=== PATIENT | male | born 1980 | race Caucasian/White ===

== ENCOUNTER 2024-01-21 09:50 | Inpatient (IN) | payer OTHER, MEDICAID ==
[2024-01-21] VITALS (21 sets, daily range): BP systolic 132–184; BP diastolic 75–109
[~2024-01-21] VITALS: Ht 167.6 cm; Wt 89.4 kg
[~2024-01-21 09:50] MED LIST: COREG25 MG PO; NIFEDIPINE ER60 M1 PO; ONDANSETRON HCL4 MG PO; ZESTRIL40 MG PO
--- OUTSIDE RECORDS SUMMARY | 2024-01-21 09:51 | XMS ---
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 Socrates has no Care Guidelines for this patient. [facility] VISIT COUNT (12 MO[address] [facility] TOTAL 2 NOTE: Visits indicate total known visits. ED/C VISIT TRACKING (12 MO.) 01/21/2024 09:[address] 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
[2024-01-21] MEDS ORDERED: SODIUM CHLORIDE 0.9% 1,000 ML IV PRN (10:15)
[2024-01-21] MEDS ORDERED: CEFTRIAXONE/SODIUM CHLORIDE 2 GM/100 ML PIGGYBACK IV ONE (10:15)
[2024-01-21] MEDS ORDERED: ondansetron HCL 4 MG/2 ML VIAL IV ONE (10:15)
[2024-01-21] MEDS ORDERED: PANTOPRAZOLE SODIUM 40 MG/10 ML VIAL IV ONE (10:15)
[2024-01-21] MEDS ORDERED: HYDROmorphone HCL 1 MG/ML SYR IV ONE (10:15)
[2024-01-21 10:23] LABS: BASOPHILS 0.3 % (0-2); HEMATOCRIT 43.5 % (35.0-50.0); HEMOGLOBIN 14.9 g/dL (12.0-18.0); LYMPHOCYTES 3.4 % (24-44); MCH 30.4 (27-36); MCHC 34.2 g/dl (30-36); MCV 88.9 fl (81-99); MONOCYTES 4.6 % (0-12); NEUTROPHILS 91.7 % (39-80); PLATELET COUNT 226 K/uL (140-440); RBC 4.89 M/ul (4.3-5.7); RDW 15.6 (10.5-15.0)
[2024-01-21 10:37] LABS: INR 1.03 (0.80-1.30); PROTIME 13.1 Sec (11.2-14.2)
[2024-01-21 10:39] LABS: PARTIAL THROMBOPLASTIN TIME 23.4 Sec (22.9-41.3)
[2024-01-21 10:50] LABS: ALBUMIN/GLOBULIN RATIO 1.05 (1.1-2.4); ALCOHOL, MEDICAL 6 ng/dL (<3); ALKALINE PHOSPHATASE 113 U/L (46-116); ALT (SGPT) 24 U/L (14-59); AST (SGOT) 19 U/L (15-37); BILIRUBIN, TOTAL 1.6 ng/dL (0.2-1.0); BUN/CREATININE RATIO 10.23 (6.0-28.6); CALCIUM 11.1 mg/dL (8.5-10.1); CARBON DIOXIDE 30 mmol/L (21-32); CHLORIDE 93 mmol/L (98-107); CREATININE, SERUM 2.15 mg/dL (0.70-1.30); GLOMERULAR FILTRATION RATE,EST 38 mL/min (>60); PROTEIN, TOTAL 7.8 g/dL (6.4-8.2); UREA NITROGEN 22 mg/dL (7-18)
[2024-01-21 10:55] LABS: LACTIC ACID, BLOOD 5.9 mmol/L (0.4-2.0)
[2024-01-21] MEDS ORDERED: MAGNESIUM SULFATE 2 GM/50 ML BAG IV ONE ×2 (11:15→21:45)
[2024-01-21 11:19] LABS: MAGNESIUM 0.9 mg/dL (1.8-2.4)
[2024-01-21 11:30] LABS: BILIRUBIN, URINE POSITIVE (negative); BLOOD/HGB, URINE TRACE-I (Negative); KETONE, URINE SMALL (Negative); LEUK ESTERASE, URINE NEGATIVE (negative); NITRITE, URINE NEGATIVE (negative)
[2024-01-21 11:36] LABS: EPITHELIAL CELLS, URINE TRANSITIONAL 1+ /lpf (0-1+)
[2024-01-21 11:37] LABS: BACTERIA, URINE 1+ /hpf (negative); CRYSTALS, URINE NONE SEEN (0-1+)
[2024-01-21 11:38] LABS: COLLECTION TYPE, URINE CLEAN CATCH; REFLEX CULTURE, URINE No (No)
[2024-01-21 11:44] LABS: AMPHETAMINES, URINE NEGATIVE (NEGATIVE); BARBITURATES, URINE NEGATIVE (NEGATIVE); BENZODIAZEPINE, URINE NEGATIVE (NEGATIVE); BUPRENORPHINE, URINE NEGATIVE (NEGATIVE); CANNABINOID, URINE NEGATIVE (NEGATIVE); COCAINE, URINE NEGATIVE (NEGATIVE); ECSTASY, URINE NEGATIVE (NEGATIVE); FENTANYL, URINE NEGATIVE (NEGATIVE); METHADONE, URINE NEGATIVE (NEGATIVE); OPIATES, URINE NEGATIVE (NEGATIVE); OXYCODONE, URINE NEGATIVE (NEGATIVE); PHENCYCLIDINE, URINE NEGATIVE (NEGATIVE)
[2024-01-21 11:47] LABS: INFLUENZA B NAA NEGATIVE (NEGATIVE); RESPIRATORY SYNCYTIAL VIR NAA NEGATIVE (NEGATIVE)
[2024-01-21 12:54] LABS: LACTIC ACID, BLOOD 1.5 mmol/L (0.4-2.0)
[2024-01-21] MEDS ORDERED: METOPROLOL TARTRATE 5 MG/5 ML VIAL IV ONE (13:00)
[2024-01-21] MEDS ORDERED: hydrALAZINE HCL 20 MG/ML VIAL IV ONE (13:15)
[2024-01-21] MEDS ORDERED: niCARdipine HCL 50 MG in DEXTROSE 5% 250 ML IV SCH (13:45)
[2024-01-21] MEDS ORDERED: LORazepam 2 MG/ML VIAL IV/IM PRN (14:30)
[2024-01-21] MEDS ORDERED: LORazepam 1 MG TAB PO PRN (14:30)
[2024-01-21] MEDS ORDERED: LACTATED RINGER'S 1,000 ML IV SCH (14:30)
[2024-01-21] MEDS ORDERED: ondansetron HCL 4 MG/2 ML VIAL IV PRN (14:30)
[2024-01-21 14:40] LABS: CHOLESTEROL/HDL RATIO 3.4
[2024-01-21] MEDS ORDERED: HYDROmorphone HCL 1 MG/ML SYR IV PRN (15:30)
[2024-01-21] MEDS ORDERED: NICOTINE 21 MG/24 HR 1 EA TDSY TD SCH (15:30)
[2024-01-21] MEDS ORDERED: POTASSIUM CHLORIDE 40 MEQ,LIDOCAINE HCL 1% 40 MG in DEXTROSE 5% 250 ML IV ONE (15:30)
--- NOTE | 2024-01-21 15:30 | NUR ---
PATIENT ARRIVES TO CCU FROM ER TO 127 AT 1510 FOR PANCREATITIS. PT ABLE TO MOVE SELF OVER TO BED. PT HAS TWO BAGS OF PERSONAL BELONGINGS WITH HIM. 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 PER PATIENT, HE IS HOMELESS AND TRAVELING TO THE [place]. PT REPORTS ABD PAIN STARTED A FEW DAYS AGO, AN HE HAS HAD A HARD TIME KEEEPING ANYTHING DOWN WITH VOMITING. NICARDIPINE GTT INFUSING AT 7.5 MG/HR UPON ARRIVAL. HR IN THE 120s. PT REPORTS BEING A PREVIOUS HEAVY ALCOHOL CONSUMER, BUT HASN'T BEEN DRINKING HEAVILY FOR A WHILE, BUT DID HAVE 3 HIGH GRAVITY BEERS LAST NIGHT. IVF STARTED AT 125 ML/HR. PT ORIENTED TO ROOM AND CALL LIGHT. PRN MEDICATION TO BE AVAILABLE FOR PAIN CONTROL. PT IS DISTENDED IN HIS ABDOMEN AND TENDER. PT TO REMAINS NPO BUT CAN HAVE ICE CHIPS. URINAL PROVIDED.
--- NOTE | 2024-01-21 16:45 | NUR ---
PRN MEDICATION GIVEN FOR 5/10 ABDOMINAL PAIN. PT REMAINS NPO BUT ICE CHIPS OKAY. IVF GOING AT 125 ML/HR. NICARDIPINE IS NOW OFF. MAP GOAL IS <110. HR REMAINS IN THE 120s.
--- NOTE | 2024-01-21 19:36 | NUR ---
SHIFT CHANGE REPORT RECEIVED FROM FILI LUDWIG. PATIENT RESTING IN BED WITH EYES OPEN. AOX3. PATIENT DENIES NAUSEA AND PAIN AT THIS TIME. FRESH WATER PROVIDED. EDUCATION PROVIDED ON GOING SLOW WITH SIPS OF WATER. CALL LIGHT IN REACH.
--- NOTE | 2024-01-21 20:36 | NUR ---
DR. DE JESUS ROUNDING ON PATIENT. BP CHARTED WITH MAP OF 94. NICARDIPINE GTT TITRATED DOWN PER FLOWSHEET. PLAN OF CARE REVIEWED WITH PATIENT, DENIES QUESTIONS. DR. DE JESUS OFFERED TO SLOWLY ADVANCE DIET PATIENT IMPROVES. PATIENT DENIES APPETITE THIS TIME AND WISHES TO STAY WITH ICE/WATER.
[2024-01-21 21:16] LABS: ANION GAP 14.2 (7-21); BUN/CREATININE RATIO 11.11 (6.0-28.6); CREATININE, SERUM 1.8 mg/dL (0.70-1.30); MAGNESIUM 1.7 mg/dL (1.8-2.4); POTASSIUM 3.2 mmol/L (3.5-5.1)
--- NOTE | 2024-01-21 21:16 | NUR ---
PATIENT AGREEABLE TO SECOND IV. 20G PIV STARTED ON FIRST ATTEMPT IN LEFT FA. BLOOD DRAWN AND SENT TO LAB. PATIENT C/O 5 SHARP ABDOMINAL PAIN. MEDICATED WITH DILAUDID PER EMAR. PATIENT REPORTS "I AM REALLY TIRED TONIGHT, I WAS UP ALL NIGHT VOMITING LAST NIGHT." POC REVIEWED AGAIN WITH PATIENT. EXPLAINED NURSING CARES THROUGHOUT THE NIGHT BUT THAT THIS ACCREDITATION MANAGER WOULD PROMOTE MUCH REST POSSIBLE. CALL LIGHT IN REACH.
[2024-01-21] MEDS ORDERED: POTASSIUM CHLORIDE 10 MEQ/100 ML BAG IV ONE (21:45)
[2024-01-21] MEDS ORDERED: POTASSIUM CHLORIDE 10 MEQ/100 ML BAG IV SCH (21:45)
--- NOTE | 2024-01-21 22:48 | NUR ---
CLARIFIED POTASSIUM REPLACEMENT ORDER WITH DR. DE JESUS. VERBAL ORDER READ BACK TO CONFIRM PATIENT IS TO RECEIVE A TOTAL OF 40MEQ. REVIEWED UO WITH PROVIDER, ORDER RECEIVED TO INCREASE IVF TO 200ML/HR AND CONTINUE TO TITRATE NICARDIPINE FOR BP PARAMETERS. PATIENT WAKES SO SOUND IN ROOM, REVIEWED LAB RESULTS AND IV ELECTROLYTE REPLACEMENT. PATIENT DENIES QUESTIONS. REPORTS HIS PAIN IS NOW 0/10. ENCOURAGED PATIENT TO ATTEMPT TO VOID. PT DENIES NEEDS AT THIS TIME. CALL LIGHT IN REACH.
[2024-01-22] VITALS (18 sets, daily range): BP systolic 118–159; BP diastolic 65–100
--- NOTE | 2024-01-22 00:15 | NUR ---
PATIENT WAKES EASILY FOR ASSESSMENT. CONTINUES TO DENY NEED TO VOID. BLADDER SCAN COMPLETED FOR 277ML. ENCOURAGED PATIENT TO VOID. ASSISTED OOB AND PATIENT VOIDED 250ML GRICELDA COLORED URINE. DENIES NAUSEA OR PAIN AT THIS TIME. MAGNESIUM INFUSION COMPLETE, REMAINING IVF INFUSING WITHOUT DIFFICULTY. CALL LIGHT IN REACH. EDUCATION PROVIDED ON S/S OF FLUID OVERLOAD. PATIENT VERBALIZED UNDERSTANDING AND AGREES TO CALL THIS RN IF ANY CONCERNS.
[2024-01-22] MEDS ORDERED: POTASSIUM CHLORIDE 100 ML IV ONE (02:25)
--- NOTE | 2024-01-22 02:44 | NUR ---
PATIENT WAKES EASILY TO INHALATION THERAPIST IN ROOM. PATIENT COMPLAINS OF 6/10 ABDOMINAL PAIN AND NAUSEA. MEDICATED FOR BOTH. PATIENT HAS WARM SENSATION AND INCREASED NAUSEA WITH DILAUDID IVP EVEN WITH SLOW ADMINISTRATION, HOWEVER, SENSATION SUBSIDES AND NO FURTHER COMPLAINTS. LAST INFUSION OF 10MEQ OF POTASSIUM HUNG AND INFUSING, ALL IVF INFUSING WITHOUT DIFFICULTY. FRESH WATER PROVIDED. DENIES OTHER NEEDS OR CONCERNS. CALL LIGHT IN REACH.
--- NOTE | 2024-01-22 04:05 | NUR ---
PATIENT RESTING BUT WAKES TO SOUND OF IV PUMP ALARMING. ASSESSMENT CHARTED. PATIENT ENCOURGES TO GET UP TO VOID. VOIDED 200ML GRICELDA COLORED URINE. PATIENT REPORTS THAT HE HAS NO PAIN OR NAUSEA AT THIS TIME. DENIES NEEDS OR CONCERNS. CALL LIGHT IN REACH.
[2024-01-22] MEDS ORDERED: DEXTROSE 5% 250 ML IV ONE (04:52)
[2024-01-22 05:34] LABS: BASOPHILS 0.4 % (0-2); EOSINOPHILS 0.4 % (0-6); HEMATOCRIT 34.8 % (35.0-50.0); HEMOGLOBIN 12.2 g/dL (12.0-18.0); LYMPHOCYTES 4.6 % (24-44); MCH 31.2 (27-36); MCHC 35.1 g/dl (30-36); MCV 88.7 fl (81-99); MONOCYTES 1.7 % (0-12); NEUTROPHILS 92.9 % (39-80); PLATELET COUNT 116 K/uL (140-440); RBC 3.93 M/ul (4.3-5.7); RDW 15.4 (10.5-15.0)
[2024-01-22 05:49] LABS: ALBUMIN 2.8 g/dL (3.4-5.0); ALBUMIN/GLOBULIN RATIO 0.97 (1.1-2.4); BILIRUBIN, TOTAL 1.2 ng/dL (0.2-1.0); BUN/CREATININE RATIO 10.45 (6.0-28.6); CALCIUM 8.6 mg/dL (8.5-10.1); CREATININE, SERUM 1.53 mg/dL (0.70-1.30); PHOSPHORUS, INORGANIC 1.6 mg/dL (2.5-4.9); PROTEIN, TOTAL 5.7 g/dL (6.4-8.2)
[2024-01-22] MEDS ORDERED: POTASSIUM PHOSPHATE 30 MMOL in DEXTROSE 5% 500 ML IV ONE (06:00)
--- NOTE | 2024-01-22 06:03 | NUR ---
LAB RESULTS, FLUIDS AND UO REVIEWED WITH DR. DE JESUS. INGA FOR POTASSIUM PHOSPHATE IV.
--- NOTE | 2024-01-22 08:07 | EKG ---
[facility] [address] [place], [place] [address] \T\ T wave abnormality, consider inferolateral ischemia Abnormal ECG No previous ECGs available Confirmed by Kashmir De Jesus MD () on 01/22/2024 8:07:39 AM Electronically Signed By: KASHMIR DE JESUS MD 01/22/2407 PATIENT NAME: STEVEN PARRA Electrocardiogram DATE OF : 76 PHYSICIAN: KASHMIR DE JESUS MD REPORT #: [id number] REPORT IS CONFIDENTIAL AND NOT TO BE RELEASED WITHOUT AUTHORIZATION
--- NOTE | 2024-01-22 08:21 | NUR ---
PATIENT RESTING IN BED UPON INITIAL ASSESSMENT. PT AWAKENS EASILY. PT STATES HE IS FEELING MUCH BETTER THAN WHEN HE FIRST CAME TO THE HOSPITAL. HR IN THE 110s. IVF CONTINUE AT 200 ML/HR. PT RATING PAIN 0/10 CURRENTLY. PT REMAINS OFF NICARDIPINE GTT. LAST BP 150/92 (110). PT HAS BEEN TOLERATING WATER WITHOUT ANY NAUSEA OR WORSENING ABD PAIN. PLAN OF CARE DISCUSSED.
[2024-01-22] MEDS ORDERED: PANTOPRAZOLE SODIUM 40 MG/10 ML VIAL IV SCH (09:00)
--- NOTE | 2024-01-22 09:10 | NUR ---
DR. DE JESUS IN TO SEE PATIENT AT THIS TIME AND DISCUSS PLAN OF CARE. PT REMAINS TACHY IN THE 110s. IVF CONTINUE AT 200 ML/HR AT THIS TIME.
[2024-01-22] MEDS ORDERED: ACETAMINOPHEN 325 MG TAB PO PRN (09:15)
--- NOTE | 2024-01-22 09:30 | NUR ---
In and spoke with Daron. He states he is homeless. He has an exwife and son, he does not have any contact. Other family members are . He was on his way to [place], [place]. from [place], [place] He states he spent the last 2 years in [facility] and cannot stand another winter there. He is attempting to get to [place], [place] where it is warm and there is also a VA. Pt states he closed his checking account in [place] and he is unsure where his money from his VA pension is going. He states when he gets to [place], there is a VA in [place] and he will staighten out his checking and insurance. I attempted to call the VA, but it is a holiday. Pt does not use any DME. 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 I spoke with Johanna Grace and updated pt is requesting money for a bus ticket. She states she will look into this. She thinks they can provide a gift card to cover the cost of a ticket when pt is discharged.
[2024-01-22] MEDS ORDERED: lisinopriL 20 MG TAB PO SCH (09:37)
[2024-01-22] MEDS ORDERED: THIAMINE HCL 100 MG TAB PO SCH (09:41)
[2024-01-22] MEDS ORDERED: FOLIC ACID 1 MG TAB PO SCH (09:41)
[2024-01-22] MEDS ORDERED: carvediloL 25 MG TAB PO SCH (09:45)
--- NOTE | 2024-01-22 10:32 | NUR ---
UR CLINICAL REVIEW: [facility] INPT CRITERIA FOR ACUTE PANCREATITIS SELF PAY INPT 01/21/24 @ 1430 ORDER MATCHES REG NO AUTH REQUIRED PATIENT IS SELF PAY DISCHARGE PENDING FUTHER ASSESSMENT AND CASE MANAGEMENT ASSIST 01/24/24
--- NOTE | 2024-01-22 11:18 | NUR ---
PATIENT RESTING IN BED AT THIS TIME. HR NOW AROUND 100s. LAST BP 163/106 (120). HOME MEDICATIONS RESTARTED FOR PATIENT. PT DENIES ABD PAIN AT THIS TIME. DR. DE JESUS HAS BEEN IN TO SEE PATIENT AND PLAN OF CARE WAS DISCUSSED.
--- NOTE | 2024-01-22 11:30 | NUR ---
Notified by Alexa, CCU manager environmental services. The hospital will pay the cost of a bus ticket for Carlos as his was traveling to [place] and was "stuck" here. I reviewed the bus schedule and spoke with Bud. Ticket cannot be changed or refunded. I spoke with Dr. Estrada and he feels pt will dc tomorrow, but cannot guarantee. I will wait and book the ticket tomorrow.
[2024-01-22] MEDS ORDERED: PHARMACY RENAL DOSE ADJUSTMENT 1 DOSE MISC PO SCH (12:00)
[2024-01-22] MEDS ORDERED: PEPCID AC20 MG PO (14:04)
--- NOTE | 2024-01-22 14:05 | NUR ---
MED REC COMPLETE
--- NOTE | 2024-01-22 14:18 | NUR ---
VISITED DURING SPIRITUAL CARE ROUNDS. PT EXPRESSED FATIGUE, HEADACHE, SO SHORT VISIT. COMMUNITY AFFAIRS MANAGER PROVIDED SUPPORTIVE PRESENCE, PRAYER. PT EXPRESSED GRATITUDE.
--- NOTE | 2024-01-22 15:26 | NUR ---
BED BATH GIVEN. PT TOLERATED WELL. PT VERY DIRTY, AND HASN'T LIKELY SHOWERED IN A QUITE A WHILE. PT TO BE GETTING A BUS TICKET TO [place] PER CASE MANAGEMENT UPON DISCHARGE. PATIENT REC'D PHONE CALL FROM A FRIEND STATING THAT HE HIDE HIS PERSONAL BELONGINGS, THE ONES THAT HE WASN'T ABLE TO TAKE WITH HIM ON THE AMBULANCE RIDE TO THE HOSPITAL. PT HOPEFUL TO GET HIS PERSONAL BELONGINGS AFTER HE D/C HOME.
--- NOTE | 2024-01-22 16:06 | NUR ---
Updated Daron, the hospital will cover the cost of the bus ticket. His cell phone number is [phone]. He will get his email for me by tomorrow.
[2024-01-22] MEDS ORDERED: MAGNESIUM HYDROXIDE/AL HYDROX 30 ML CUP PO PRN (18:00)
--- NOTE | 2024-01-22 19:40 | NUR ---
PATIENT RESTING IN BED ALERT AND ORIENTED, DURING ASSESSMENT WHEN PROMPTED WITH ASSESSMENT QUESTIONS THAT HE IS FEELING BETTER TODAY, LESS PAINFUL, HE IS COOPERATIVE WITH ALL CARES. THIS RN ENCOURAGES PATIENT THAT IF AT SOME POINT HE FEELS UP TO THAT IT IS BENEFICIAL TO AMBULATE/WALK TO HELP ENCOURAGE BOWEL MOTILITY, EDUCATION PROVIDED IN THIS REGARDS. PATIENT VERBALIZED UNDERSTANDING. HE IS NOT PASSING FLATUS, NO BM, BOWEL TONES HYPOACTIVE. ABD DISTENDED AND FIRM.
--- NOTE | 2024-01-22 22:11 | NUR ---
PATIENT CALLED NURSES STATION, ASKING FOR MEDICATION FOR HEARTBURN, HE ASKED FOR SOMETHING TO EAT EARLIER AND AGREED TO VEG. BROTH AND STRAWBERRY JELLO. IS IN OTHER UNIT AND ASKED TO COME TO THIS UNIT TO UPDATE AND REQUEST FURHTER ORDERS TO MANAGE GERD.
[2024-01-22] MEDS ORDERED: LIDOCAINE & ANTACID 35 ML BTL PO ONE (22:30)
--- NOTE | 2024-01-22 22:32 | NUR ---
NEW ORDER FOR GI COCKTAIL ONE TIME DOSE. THIS IS ADMINSITERED AT THIS TIME. PATIENT REPORTS HIS SYMPTOMS ARE HIS CHRONIC SYMPTOMS, NOTHING DIFFERENT OR NEW.
--- NOTE | 2024-01-22 23:30 | NUR ---
PATIENT REPORTS HEARTBURN HAS RESOLVED. NO FURTHER COMPLAINTS.
[2024-01-23] VITALS (16 sets, daily range): BP systolic 91–147; BP diastolic 55–87
--- NOTE | 2024-01-23 00:30 | NUR ---
PATIENT CALLED NURSES STATION TO ASK WHAT IS OUTSIDE HIS WINDOW, THIS RN EXPLAINED TO PATIENT THAT THE LOADING DOCK FOR TRUCKS, DUMPSTER AND STORAGE SHEDS ARE BELOW HIS WINDOW, HE SAID, "I HEARD SOMETHING OUT THERE." THIS RN LOOKED OUT THE WINDOW AND THERE IS A TRUCK AT LOADING DOCK. THIS RN EXPLAINED TO PATIENT THERE IS A TRUCK AT THE LOADING DOCK JUST BELOW HIS ROOM WINDOW. PATIENT SAID, "OH, OK" PATIENT REPORTS NO OTHER CONCERNS OR REQUESTS. CALL LIGHT IN REACH.
--- NOTE | 2024-01-23 01:00 | NUR ---
PATIENT CALLED NURSES STATION, THIS RN INTO PATIENT ROOM. PATIENT SAID, "I KNOW THERE ARE PEOPLE OUT THERE." THIS RN LOOKS OUT THE WINDOW AND THE TRUCK AT THE LOADING DOCK IS NOW GONE. EXPLAINED TO PATIENT THAT WHAT HE HEARD WAS THE TRUCK LEAVING. THIS RN ASKED IF PATIENT WOULD LIKE TO GET UP AND LOOK OUT THE WINDOW? PATIENT SAID, "YES" THIS RN UNHOOKED IV AND LEADS TO ALLOW PATIENT TO WALK TO WINDOW AND LOOK OUT. THIS RN ASKED, "DOES IT LOOK LIKE YOU THOUGHT IT WOULD?" PATIENT SAID, "NO." PATIENT THEN BACK TO BED AND HOOKED BACK UP TO MONITOR AND IV FLUIDS. PATIENT ATTEMPTED TO VOID AND WAS UNABLE TO AT THIS TIME.
--- NOTE | 2024-01-23 01:37 | NUR ---
PATIENT REMOVED HIMSELF FROM MONITOR AND IV. PATIENT OUT IN HALLWAY. PATIENT STATED "I TOOK OFF ALL MYSTUFF AND WENT PEE". PATIENT ASSISTED BACK INTO ROOM. PATIENT PLACED BACK ON MONITOR AND IV HOOKED BACK UP. PATIENT IS AAOX4. PATIENT DENIES ANY FURTHER NEEDS. PATIENTS URINAL IS EMPTY. CALL LIGHT IN REACH. IV INFUSING PER ORDER.
--- NOTE | 2024-01-23 02:05 | NUR ---
PATIENTS CALL LIGHT ALERTING STAFF. THIS RN INTO PATIENTS ROOM. PATIENT STATED "THERE IS A PERSON UNDER THERE ON A LABTOP". THIS RN TURNED LIGHT IN ROOM ON TO REORIENT PATIENT. PATIENT STATED "I THOUGHT THER WAS A PERSON UNDER THE SINK ON THE LABTOP. PATIENT IS NOTED TO BE RESTLESS IN BED AND APPEARS ANXOUS. THIS RN ASSISTED PATIENT BACK INTO BED. PATIENTS CIWA NOTED TO BE 13. NOTIFIED PRIMARY RN.
--- NOTE | 2024-01-23 02:22 | NUR ---
PATIENT SCORE A 12 ON CIWA, 1MG ATIVAN PRN AT THIS TIME. PATIENT IS ALERT, EDUCATION GIVEN HE IS AGREEABLE TO ADMINISTRATION OF ATIVAN. ALSO BLADDER SCANNED 239ML IN BLAE, HE HAS ONLY VOIDED ONCE THIS SHIFT.
--- NOTE | 2024-01-23 02:44 | NUR ---
THIS RN IN TO PATIENTS ROOM TO TAKE BP. PATIENT IS POINTING AT CEILING AND ASKING "DO YOU SEE THAT, UP THERE ON THE CEILING". THIS RN INQUIRED ABOUT WHAT PATIENT WAS SEEING. PATIENT STATED "THE STUFF COMING OUT OF THE VENT". PATIENT REASSURED THAT THERE IS NOTHIG COMING OUT OF THE VENT. PATIENT CONTINUES TO REST IN BED. NAD NOTED. CALL LIGHT IN REACH.
--- NOTE | 2024-01-23 02:58 | NUR ---
PATIENT OUT OF BED WITHOUT CALLING, ELISE RN AND CATINA PENN INTO PATIENT ROOM PATIENT STANDING AT BEDSIDE UNPLUGGING HIS IV POLE FROM WALL OUTLET. PATIENT ADMINISTERED 1MG IV PRN FOR CIWA 11. HE REPORTS HE IS OUT OF BED TO GO TO BATHROOM, HE THEN VOIDED ON THE FLOOR ALL THE WAY TO BATHROOM AND ON GOWN, HE THEN STOOD NEXT TO THE BATHROOM AND ASKED WHAT IS THIS ON MY GOWN? THIS RN AND CATINA RN ASSISTED PATIENT TO CHANGE GOWN AND BACK TO BED, WHEN ASKED WHERE HIS URINAL IS HE SAID, "SOMEONE MESSED WITH IT, PUT SOMETHING IN IT." PATIENT BACK TO BED. BED ALARM ON FOR PATIENT SAFETY. CALL LIGHT IN REACH. FRESH ICE WATER PROVIDED. HE SAID, "WHATS IN THIS WATER?" THIS RN SAID, "ITS JUST ICE WATER?" HE THEN POINTED TO BLUE MEASUREMENT CHINO AND SAID, "WHATS THIS?" THIS RN EXPLAINED THAT THE BLUE CHINO ARE ON THE CUP FOR MEASUREMENTS." HE SAID, "OH, THATS RIGHT." PATIENT REPORTS NO OTHER NEEDS AT THIS TIME.
[2024-01-23] MEDS ORDERED: NICOTINE POLACRILEX 4 MG LOZENGE BUCCAL PRN (03:30)
--- NOTE | 2024-01-23 03:47 | NUR ---
CALLED TO UPDATE ON PATIENTS SYMPTOMS OF ETOH WITHDRAWAL, AND ADMINISTRATION OF ATIVAN, WITH CIWA SCORES. HE SAID TO CONTINUE TO ADMINISTER ATIVAN NEEDED.
--- NOTE | 2024-01-23 04:18 | NUR ---
PATIENT CONTINUES TO PULL OFF LINES AND DROP WATER CUPS ON THE FLOOR. HE IS REACHING FOR THINGS THAT ARE NOT THERE. HE IS PULLING BLANKETS OFF AND SAYING HE WANTS TO GET TO HIS BED. THIS RN ATTEMPTS TO REORIENT PATIENT TO PLACE, HE THEN IS REDIRECTABLE. CIWA 13, ATIVAN 1MG IV PRN ADMINISTERED.
--- NOTE | 2024-01-23 04:30 | NUR ---
CALLED REPORT REPORT PATIENT NOW AT CIWA 20 AND ATIVAN HAS NOT BEEN EFFECTIVE, HIS CIWA IS INCREASED. NEW ORDERS.
[2024-01-23] MEDS ORDERED: PHENOBARBITAL SOD 130 MG/ML VIAL IV PRN (04:45)
--- NOTE | 2024-01-23 04:47 | NUR ---
VERIFIED NEW MEDICAITONS WITH TELEPHARM AND , WANTS TO HAVE AM DOSE FOR PROCARDIA TO BE HELD.
--- NOTE | 2024-01-23 05:01 | NUR ---
PATIENT ADMINISTERED FIRST DOSE OF 130MG OF PHENOBARBITAL PER ORDERS, NORA JOHNSON IS 1:1 AT BEDSIDE NOW FOR PATIENT SAFETY.
--- NOTE | 2024-01-23 05:26 | NUR ---
PATIENT INCONT OF URINE. PATIENTS BEDDING AND GOWN CHANGED. LUIS CARE COMPLETED AND ATTEND PLACED ON PATIENT. PATIENT REPOSITIONED IN BED. PATIENT IS TALKING AND POINTING AT THINGS AROUND THE ROOM STATING "THEY ARE GONNA GET ME". PATIENT IS 1 ON 1 FOR PATIENT SAFETY. STAFF REMAIN IN THE ROOM. BED ALARM ON FOR SAFETY.
[2024-01-23 05:49] LABS: ANION GAP 8.8 (7-21); BUN/CREATININE RATIO 7.79 (6.0-28.6); CREATININE, SERUM 1.54 mg/dL (0.70-1.30); POTASSIUM 2.8 mmol/L (3.5-5.1)
[2024-01-23 05:51] LABS: PHOSPHORUS, INORGANIC 0.7 mg/dL (2.5-4.9)
--- NOTE | 2024-01-23 06:11 | NUR ---
NOTIFIED OF CRITICAL LAB, ARRIVED TO CCU TO CHECK IN ON PATIENT, DISCUSSED CARE PLAN AND NEW ORDERS.
[2024-01-23] MEDS ORDERED: POTASSIUM PHOSPHATE 30 MMOL in DEXTROSE 5% 500 ML IV ONE (06:15)
[2024-01-23] MEDS ORDERED: MAGNESIUM SULFATE 2 GM/50 ML BAG IV ONE (06:15)
--- NOTE | 2024-01-23 06:31 | NUR ---
SECOND DOSE OF PHENOBARBITAL ADMINISTERED DUE TO PATIENT CONTINUE TO ATTEMPT TO GET OUT OF BED AND CIWA 20. 1:1 NORA JOHNSON AT BEDSIDE FOR PATIENT SAFETY.
--- NOTE | 2024-01-23 06:51 | NUR ---
PATIENT HAS HAD A DIFFICULT NIGHT WITH CIWA SCORES INCREASED DESPITE MEDICATIONS AND INTERVENTIONS, RECORDS FROM [facility], HE VERBALIZED "I DONT DRINK MUCH ANYMORE." HE ALSO VERBALIZED TO THIS RN THAT HE HAS WENT THROUGH ETOH WITHDRAWAL IN PAST. LABS/VITALS SYMPTOMS OF ETOH WITHDRAWAL HAS BEEN UPDATED TO . HE CONTINUES AT THIS TIME TO SCORE 22 ON CIWA.
--- NOTE | 2024-01-23 07:30 | NUR ---
REPORT RECEIVED. UPON ENTERING ROOM, CIWA ASSESSMENT DONE. PATIENT IS VERY RESTLESS. PICKING AT AIR. INCOHERENT, TREMORS, SWEATING. WILL GIVE ATIVAN 1 MG AND PHENOBARB 130 MG IV.
--- NOTE | 2024-01-23 07:43 | NUR ---
ATIVAN 1 MG IV FOLLOWED BY PHENOBARB 130 MG GIVEN PER [facility] PROTOCOL.
--- NOTE | 2024-01-23 08:00 | NUR ---
IS A LITTLE MORE CALM SINCE PHENOBARB AND ATIVAN GIVEN. HOWEVER, DOES REMAINS WITH TREMORS AND SWEATS, RESTLESS. SNORING AND WILL OCC SAY INCOMPREHENSIBLE WORDS. WILL REMEDICATE WHEN TIME. ASSESSMENT DONE. 20 GA IV STARTED TO RIGHT INNER FORARM. WILL HANG K PHOS WHEN AVAILABLE. ATTENDS ON.
--- NOTE | 2024-01-23 08:13 | NUR ---
ATIVAN REPEATED. REMAINS WITH CIWA SCORE OF 16-18.
--- NOTE | 2024-01-23 08:30 | NUR ---
Notified by CCU staff and Dr. Sahu, pt will not be able to dc today as he is having DTs.
--- NOTE | 2024-01-23 08:40 | NUR ---
MORE CALM NOW. NO MEDICATION GIVEN AT THIS TIME. WILL NOT BE ABLE TO TAKE PO MEDS THIS MORNING. DR. MENDEZ IS AWARE. SNORING, REPOSITIONED.
--- NOTE | 2024-01-23 09:20 | NUR ---
CONTINUES TO BE CALM. O2 AT 2.5 LITERS VIA OXYMASK APPLIED AND WILL OCC DESAT TO HIGH 80'S. INC OF URINE.
--- NOTE | 2024-01-23 10:30 | NUR ---
INCONT OF LARGE AMOUNT OF URINE. PATIENT IS CALM, HASN'T BEEN MEDICATED WITH PHENOBARB OR ATIVAN SINCE APPROX 0815 THIS AM. SPONGE BATH GIVEN, ATTENDS CHANGED AND PUREWICK APPLIED. PATIENT TOLERATED FAIR. HAS OCC COUGH. CONTINUES WITH INCOMPRHENSIBLE WORDS.
--- NOTE | 2024-01-23 11:10 | NUR ---
VISITED DURING SPIRITUAL CARE ROUNDS. PT APPEARED TO BE SLEEPING. DID NOT DISTURB. PROVIDED PRAYER.
--- NOTE | 2024-01-23 11:20 | NUR ---
VERY RESTLESS, PICKING AT AIR, NOT DIRECTABLE, GARBLED SPEECH. DAMP TO TOUCH. PULLED OUT RFA IV SITE. PHENOBARB 130 MG IV GIVEN.
--- NOTE | 2024-01-23 11:35 | NUR ---
REMAINS RESTLESS, IS NOT DIRECTABLE. ATIVAN 1 MG IV GIVEN. K PHOS CONTINUES TO INFUSE.
--- NOTE | 2024-01-23 11:45 | NUR ---
MORE CALM NOW. BED LINES CHANGED. POSITIONED WITH HOB ELEVATED. OXYMASK AT 2.5 LITERS. CONTINUES TO SNORE.
--- NOTE | 2024-01-23 12:30 | NUR ---
REMAINS RESTLESS. ATTEMPING TO GET OUT OF BED. ASKED PATIENT IF HE HAS MARSH, ABD PAIN. PATIENT DENIED PAIN. I WAS ABLE TO UNDERSTAND PATIENT ANSWERES. DR. MENDEZ HERE TO SEE PATIENT. DR. MENDEZ SAID HE WANTS TO HOLD OFF ON PHENOBARB AND ATIVAN FOR NOW. IF NEEDED, USE ATIVAN FIRST. RN REMAINS IN ROOM PATIENT NEEDS MUCH DIRECTION AND FOR SAFETY REASONS. BED ALARM IN ON MOST SENSITIVE LEVEL.
--- NOTE | 2024-01-23 12:54 | NUR ---
Checked on Daron. He is sleeping.
--- NOTE | 2024-01-23 13:30 | NUR ---
INCONT OF URINE. PATIENT PULLED OFF PUREWICK, ATTENDS CHANGED.
--- NOTE | 2024-01-23 14:30 | NUR ---
K PHOS INFUSED. LAB HERE TO DRAW LYTES AND AMMONIA. PATIENT SLEEPING. HAS PERIODS OF RESTLESSNESS. NO FURTHER MEDS GIVEN.
[2024-01-23 14:59] LABS: ANION GAP 11.1 (7-21); BUN/CREATININE RATIO 7.8 (6.0-28.6); CALCIUM 7.7 mg/dL (8.5-10.1); CREATININE, SERUM 1.41 mg/dL (0.70-1.30); PHOSPHORUS, INORGANIC 2.3 mg/dL (2.5-4.9); POTASSIUM 3.1 mmol/L (3.5-5.1)
--- NOTE | 2024-01-23 15:30 | NUR ---
LABS REPORTED TO DR. MENDEZ. ORDERS FOR Wendy ELISE GIVEN.
[2024-01-23] MEDS ORDERED: POTASSIUM CHLORIDE 40 MEQ,LIDOCAINE HCL 1% 40 MG in DEXTROSE 5% 250 ML IV ONE (15:45)
--- NOTE | 2024-01-23 16:20 | NUR ---
TRANSFERRED TO ROOM 128 FROM 127.
--- NOTE | 2024-01-23 17:00 | NUR ---
MORE ALERT, NEEDS TO VOID, URINAL PLACED, PATIENT VOIDED 125 ML OF CLEAR YELLOW URINE. ASKED PATIENT IF HE FELT THE MEED TO VOID MORE HE ANSWERE YED. DIDN'T HAVE ANY FURTHER URINE AT THIS TIME. BLADDER SCAN DONE, 91 ML OF URINE. NO FURTHER TREATMENT.
--- NOTE | 2024-01-23 17:20 | NUR ---
CONTINUES TO BE MORE ALERT. FOLLOWING COMMANDS. DIRECTABLE. SIPS OF WATER GIVEN WITH HOB ELEVATED. TOOK SMALL BITED OF APPLESAUSE W/O PROBLEMS. COREG, THIAMINE, AND FOLIC ACID GIVEN, TOLERATED WELL. DENIES PAIN OR NAUSEA. NOW WILL FEED CLEAR LIQUIDS.
--- NOTE | 2024-01-23 18:00 | NUR ---
TOOK LIQUIDS WELL. FED PATIENT. FAIRLY COOPERATIVE. DIFFICULT TO UNDERSTAND PATIENT AT TIMES.
--- NOTE | 2024-01-23 18:50 | NUR ---
DR. MENDEZ UPDATED ON PATIENT AFTERNOON. IS AWARE PATIENT IS MORE ALERT AND ABLE TO TAKE PO, ALSO AWARE OF PATIENT RESTLESS AT TIMES. ORDERS RECEIVED TO INCREASE DIET TOLERATED AND START GABAPENTIN 300 MG. THIS TO BE GIVENQ 6 HOURS TONIGHT. K ARIK CONTIUES TO INFUSE.
--- NOTE | 2024-01-23 19:38 | NUR ---
SHIFT REPORT RECEIVED FROM FILI WALKER. PATIENT RESTING IN BED. OPENS EYES TO NAME. ALERT TO SELF AND IN THE HOSPITAL. FOLLOWS SOME DIRECTIONS. URINAL OFFERED BUT PATIENT DID NOT VOID. ASSISTED WITH REPOSITIONING. IVF INFUSING WITHOUT DIFFICULTY. PATIENT IS RESTLESS IN BED. FREQUENTLY FIDGETING AND PULLING AT COVERS. BED ALARM REMAINS ON.
[2024-01-23] MEDS ORDERED: GABAPENTIN 300 MG CAP PO SCH (20:00)
--- NOTE | 2024-01-23 20:26 | NUR ---
INCREASED RESTLESSNESS NOTED. PATIENT REACHING AND GRASPING INTO THE AIR. PATIENT REQUESTS TO GET UP AND GO FOR A WALK. EDUCATION PROVIDED ON PATIENT SAFETY, PATIENT RESPONDS "FUCK OFF". CONTINUOUSLY PULLS AT BLANKETS AND GOWN. RE-ASSESSED CIWA WITH A SCORE OF 12. MEDICATED PER EMAR WITH ATIVAN. BED ALARM REMAINS ON AND PATIENT ON CLOSE VISUAL OBSERVATION BY THIS RN.
--- NOTE | 2024-01-23 20:39 | NUR ---
ASSISTED PATIENT WITH SOME BITES OF PUDDING. PATIENT TALKING IN A NON-LINEAR, NON-SENSICAL CONVERSATION. OFFERED FLUID AND PATIENT TOOK SIPS.
--- NOTE | 2024-01-23 20:55 | NUR ---
PARTIAL LINEN CHANGE. PATIENT INCONTINENT OF URINE IN BRIEF. REPOSITIONED IN BED. CALL LIGHT IN REACH, BED IN LOWEST POSITION AND LOCKED, BED EXIT ALARM ON. CALM ENVIRONMENT PROVIDED.
--- NOTE | 2024-01-23 21:50 | NUR ---
PATIENT MEDICATED PER EMAR FOR CIWA 14. PATIENT HAS INCREASED AGITATION, ANGER, SWEARING AT NURSING STAFF, GRABBING AT AIR, AND INCREASED RESTLESSNESS. DR. MENDEZ UPDATED, NO NEW ORDERS RECEIVED, CURRENT ORDERS REVIEWED.
--- NOTE | 2024-01-23 22:49 | NUR ---
PATIENT HAS INCREASED RESTLESSNESS. CONTINUES TO GRAB AT THE AIR. DOES NOT FOLLOW REDIRECTION. ATTEMPTES TO SWAP FINANCIAL ECONOMIST'S HAND AWAY WITH INTERVENTIONS. PATIENT WAS INCONTINENT OF URINE. FULL LINEN CHANGE COMPLETED.
--- NOTE | 2024-01-23 23:10 | NUR ---
PATIENT MEDICATED PER EMAR FOR CIWA SCORE OF 17. 1:1 AT BESIDE WITH PATIENT HE CONTINUES TO BE RESTLESS AND HAS MULTIPLE ATTEMPTS TO CLIMB OUT OF BED. PATIENT THROWS LEGS OVER RAILING, GRABS AT THE AIR, SPO2 SENSOR AND BP CUFF. BED ALARM REMAINS ON.
--- NOTE | 2024-01-23 23:38 | NUR ---
PATIENT INCONTINENT OF URINE. BRIEF AND UNDERPAD CHANGED. PATIENT GRABS AT THIS OIL WELL PERFORATOR OPERATOR'S HANDS AND ATTEMPTS TO PUSH AWAY. REPOSITIONED WITH PILLOW SUPPORT FOR COMFORT. PATIENT MUMBLES INCOMPREHENSIBLE WORDS AND THEN APPEARS TO FALL ASLEEP AND SNORE. O2 SAT 100% ON RA, RR26. 1:1 REMAINS IN ROOM. BED IN LOWEST POSITION AND LOCKED. CALL LIGHT IN REACH WITH BED EXIT ALARM ON.
[2024-01-24] VITALS (16 sets, daily range): BP systolic 112–149; BP diastolic 73–114
--- NOTE | 2024-01-24 01:06 | NUR ---
PATIENT RESTING IN BED WITH EYES CLOSED, APPEARS ASLEEP. SNORING AT REST. RR 26 WITH O2 SAT 99% ON RA. PATIENT OCCASIONALLY REACHES ARMS IN TO AIR AND MAKES GRASPING MOTIONS. OCCASIONALLY FURROWS BROW AND SAYS INCOMPREHENSIBLE WORDS. COUGH NOTED AND PATIENT SPITS CLEAR SALIVA ONTO HIS FACE. FACE CLEANED. 1:1 REMAINS IN ROOM. CALL LIGHT IN REACH AND BED EXIT ALARM ON.
--- NOTE | 2024-01-24 02:05 | NUR ---
1:1 REMAINS AT BEDSIDE. PATIENT RESTING WITH EYES CLOSED, APPEARS CALM AT THIS TIME. HR 84, SINUS RHYTHM, O2 SAT 96% RA, RR 21.
--- NOTE | 2024-01-24 03:47 | NUR ---
PATIENT RESTING WITH EYES CLOSED. RESPIRATIONS EVEN AND UNLABORED. PARTS OF ASSESSMENT DEFERRED SINCE PATIENT IS RESTING AT THIS TIME. REMAINS SINUS RHYTHM ON TELEMETRY WITH HR IN THE 80S. RR 19 AND O2 SAT 97% RA. 1:1 REMAINS AT BEDSIDE. BED EXIT ALARM ON, CALL LIGHT IN REACH.
--- NOTE | 2024-01-24 05:16 | NUR ---
AUTO BODY REPAIR TECHNICIAN IN ROOM AND FILIPPO AM LABS. PATIENT REMAINED RESTING WITH EYES CLOSED. RESPIRATIONS EVEN AND UNLABORED WITH A LIGHT SNORE. FACIAL EXPRESSION APPEARS RELAXED. CALL LIGHT IN REACH. 1:1 AT BEDSIDE AND BED EXIT ALARM ON.
[2024-01-24 05:34] LABS: BASOPHILS 0.4 % (0-2); EOSINOPHILS 1.4 % (0-6); HEMATOCRIT 28.9 % (35.0-50.0); HEMOGLOBIN 10.3 g/dL (12.0-18.0); LYMPHOCYTES 13.1 % (24-44); MCH 31.8 (27-36); MCHC 35.5 g/dl (30-36); MCV 89.7 fl (81-99); MONOCYTES 9.7 % (0-12); NEUTROPHILS 75.4 % (39-80); PLATELET COUNT 100 K/uL (140-440); RBC 3.22 M/ul (4.3-5.7); RDW 15.2 (10.5-15.0)
--- NOTE | 2024-01-24 05:43 | NUR ---
BRIEF CHANGED FOR INTCONTINENCE OF LARGE AMOUNT OF URINE. LUIS CARE PROVIDED. PARTIAL LINEN CHANGE COMPLETED AND PATIENT REPOSITIONED FOR COMFORT. PATIENT ROUSED DURING INTERVENTIONS AND MUMBLED, "WHAT ARE YOU DOING?". CARES EXPLAINED. PATIENT OPENS EYES TO NAME. WHEN ASKED WHERE HE WAS HE STATED, "[facility]". PO FLUIDS OFFERED BUT PATIENT DECLINED. 1:1 AT BEDSIDE. BED EXIT ALARM ON. CALL LIGHT IN REACH. PATIENT RETURNED TO RESTING WITH EYES CLOSED.
[2024-01-24 05:48] LABS: ALBUMIN 2.6 g/dL (3.4-5.0); ALBUMIN/GLOBULIN RATIO 0.76 (1.1-2.4); ANION GAP 14.2 (7-21); BILIRUBIN, TOTAL 0.4 ng/dL (0.2-1.0); BUN/CREATININE RATIO 6.97 (6.0-28.6); CALCIUM 7.9 mg/dL (8.5-10.1); CREATININE, SERUM 1.29 mg/dL (0.70-1.30); PHOSPHORUS, INORGANIC 2.4 mg/dL (2.5-4.9); POTASSIUM 3.2 mmol/L (3.5-5.1)
--- NOTE | 2024-01-24 06:10 | NUR ---
PATIENT TALKING INCOMPREHENSIVELY AT TIMES. DID FOLLOW DIRECTIONS TO SQUEEZE THIS WASH PLANT OPERATOR'S HANDS. WAS ABLE TO SAY HE IS IN THE HOSPITAL, CORRECT ON THE MONTH AND YEAR, HOWEVER THEN ATTEMPTS TO GET UP STATING, "I HAVE THINGS TO DO". SPEACH IS SLURRED. PATIENT PULLING OFF COVERS AND ATTEMPTING TO GET UP BUT IS REDIRECTABLE AT THIS TIME. 1:1 AT BEDSIDE FOR SAFETY.
--- NOTE | 2024-01-24 06:38 | NUR ---
LAB RESULTS REVIEWED WITH DR. MENDEZ. REVIEWED ATIVAN AND PHENOBARBITOL DOSES OVERNIGHT. ORDER RECEIVED FOR KPHOS IV.
[2024-01-24] MEDS ORDERED: POTASSIUM PHOSPHATE 30 MMOL in DEXTROSE 5% 500 ML IV ONE (06:45)
--- NOTE | 2024-01-24 07:21 | NUR ---
UR CONCURRENT REVIEW: MCG-DELIRIUM GUIDELINE ADDED, MEETS INPT CRITERIA BASIC DMAP INPT 01/21/24 @ 1430 ORDER MATCHES REG NO AUTH REQUIRED PER MEDICAID GUIDELINES DISCHARGE WHEN STABLE 01/26/24
--- NOTE | 2024-01-24 07:30 | NUR ---
REBEKAH RECEIVED. SLEEPING WITH HOB AT 30 DEGREES.
--- NOTE | 2024-01-24 08:00 | NUR ---
PO MEDS HELD AT THIS TIME. PATIENT IS TOO DROWSY TO TAKE ANYTHING ORALLY.
--- NOTE | 2024-01-24 08:12 | NUR ---
this rn at line of site with pt due to d/tAlice ward primary rn. pt set off bed alarm and this rn entered room, pt trying to get out of bed. Pt states he needs the agarwal hound and he has peed. inc of urine - rn assisted with urinal to attempt to void - pt has eyes closed and mumbles. no void in urinal - pt repositioned and attends and linen changed. pt keeps eyes closed and mumbles. rolled side to side for 1 person linen change - with constant reminders to help. pt re oriented by rn and re assured when bp cuff was agitating him. pt returns to resting state with hob up and bed alarm on with line of site to this rn. sera ward rn aware.
--- NOTE | 2024-01-24 08:45 | NUR ---
CONTINUES TO SLEEP. BREAKFAST HELD. K PHOS CONT TO INFUSE.
--- NOTE | 2024-01-24 09:36 | NUR ---
PT NOT AVAILABLE FOR VISIT. PROVIDED PRAYER.
--- NOTE | 2024-01-24 10:00 | NUR ---
Spoke with pts nurseFrancesca. He is somewhat improved but cont. with dts and medication. Cont. for plan to book ticket for pt to [place], [place] when he is able to make the 36 hr journey.
--- NOTE | 2024-01-24 11:07 | NUR ---
NO CHANGES, CONTINUES TO SLEEP. NO RESPIRATORY DISTRESS NOTED. REMAINS ON RA.
--- NOTE | 2024-01-24 12:00 | NUR ---
ASSESSMENT DONE, IS GROGGY, ABLE TO ANSWER QUESTIONS AND FOLLOW COMMANDS. COOPERATIVE. ASKING FOR URINAL. PATIENT STATES HE IS HUNGRY. SITTING UP NOW TO EAT LUNCH. ASSISTED PATIENT WITH EATING LUNCH.
--- NOTE | 2024-01-24 13:00 | NUR ---
TOOK LUNCH WELL. DENIES NAUSEA. REMAINS COOPERATIVE. TOOK PO MEDS W/O PROBLEMS. K PHOS INFUSED.
--- NOTE | 2024-01-24 14:22 | NUR ---
pt awake and swallows prn meds. talkative, asks to order breakfast. bed alarm on.
[2024-01-24 15:48] LABS: CORTISOL,SERUM 12.5 ug/dL (())
--- NOTE | 2024-01-24 16:30 | NUR ---
TRANSFERRED TO CHAIR. SOMEWHAT UNSTEADY ON FEET. MD IN ROOM. PATIENT REMAINS ALERT AND COOPERATIVE. FOLLOWING COMMANDS W/O DELAY. NO FURTHER WITDRAWAL SYMPTOMS.
--- NOTE | 2024-01-24 18:30 | NUR ---
TOOK DINNER WELL. BACK TO BED WITH ASSIST. DENIES PAIN OR ANY PROBLEMS. TALKATIVE.
--- NOTE | 2024-01-24 19:30 | NUR ---
REPORT RECEIVED FROM FILI WALKER. PATIENT RESTING IN BED CALMLY WHILE WATCHING TV. CALL LIGHT IN REACH. DENIES NEEDS
--- NOTE | 2024-01-24 19:50 | NUR ---
PATIENT ASSISTED TO STAND AT THE BEDSIDE. PATIENT ABLE TO VOID IN URINAL. PATIENT IS BACK IN BED RESTING. PATIENT DENIES ANY NEEDS. CALL LIGHT IN REACH. BED ALARM ON FOR SAFETY.
--- NOTE | 2024-01-24 20:53 | NUR ---
ASSESSMENT CHARTED. PATIENT USES CALL LIGHT FOR ASSISTANCE. REQUESTED SNACK AND SANDWICH BOX PROVIDED. HS MEDS GIVEN WITHOUT DIFFICULTY. PATIENT DENIES OTHER NEEDS AT THIS TIME.
--- NOTE | 2024-01-24 21:28 | NUR ---
PATIENT TOLERATING SANDWICH WELL. PUDDING PROVIDED PER REQUEST. PATIENT STATES, "THIS ALWAYS HAPPENS,I GET OUT OF THIS AND EAT EVERYTHING" IN REFERENCE TO WITHDRAWAL. PATIENT EXPRESSED FRUSTRATION THAT HE HAD A VISITOR COME SEE [place] TODAY BUT SHE WAS NOT LET BACK. BAG SHAKER EXPLAINED THAT I WILL PASS ON TO DAY SHIFT. CALL LIGHT IN REACH WITH BED EXIT ALARM ON.
--- NOTE | 2024-01-24 21:37 | NUR ---
PATIENT PROVIDED CLOTH TO CLEAN UP AFTER SNACK. URINAL OFFERED BUT PATIENT DENIES NEED TO VOID AT THIS TIME. ASSISTED WITH REPOSITIONING FOR COMFORT. CALL LIGHT AND PERSONAL ITEMS IN REACH. BED EXIT ALARM ON.
--- NOTE | 2024-01-24 22:20 | NUR ---
PATIENT RESTING QUIETLY IN BED WITH EYES CLOSED. RESPIRATIONS EVEN AND UNLABORED. SPO2 100% ON RA. CALL LIGHT IN REACH WITH BED EXIT ALARM ON.
--- NOTE | 2024-01-24 22:51 | NUR ---
PATIENT WOKE AND ASKED FOR BREAKFAST. RE-ORIENTED TO TIME AND PATIENT WISHES TO GO BACK TO SLEEP.
[2024-01-25] VITALS (20 sets, daily range): BP systolic 115–205; BP diastolic 79–120
--- NOTE | 2024-01-25 00:08 | NUR ---
PATIENT SLOWLY OPENS EYES TO NAME. REPOSITIONED IN BED. MINIMALLY PARTICIPATES IN ASSESSMENT. WHEN ASKED WHERE HE IS, PT STATED "[facility]". DENIES PAIN OR NAUSEA. CALL LIGHT IN REACH, BED EXIT ALARM ON.
--- NOTE | 2024-01-25 01:44 | NUR ---
PATIENT NOTED TO DESAT TO 86%. PATIENT SNORES IN HIS SLEEP AND APPEARS TO HAVE INTERMITTENT APNEIC EPISODES. REPOSITIONED TO PROMOTE IMPROVED BREATHING PATTERN WITH O2 SAT 95-100% ON RA. CALL LIGHT IN REACH. BED EXIT ALARM ON FOR SAFETY.
--- NOTE | 2024-01-25 02:05 | NUR ---
PATIENT NOTED TO BE MOVING IN BED. UPON THIS RN'S ARRIVAL, PATIENT STATED " I NEED TO PEE". ASSISTED WITH URINAL. PATIENT VOIDED 600ML LIGHT YELLOW COLORED URINE. BRIEF CHANGED FOR INCONTINENCE OF URINE WELL. PATIENT OPENED EYES AND WAS MORE AWAKE THAN WHEN PREVIOUSLY ASSESSED. WHEN ASKED IF HE IS ABLE TO WAKE UP TO TAKE A PILL, PATIENT STATED "I AM HALF WOMAN, I CAN WAKE UP AND SWALLOW". 0200 DOSE OF GABAPENTIN ADMINISTERED WITHOUT ISSUE. ASSISTED PATIENT TO REPOSITION IN BED. DENIES PAIN, NEEDS OR CONCERNS AT THIS TIME. PERSONAL ITEMS AND CALL LIGHT IN REACH. BED IN LOWEST POSITION AND LOCKED, BED EXIT ALARM ON FOR SAFETY.
--- NOTE | 2024-01-25 02:40 | NUR ---
PATIENT REQUESTS JUICE, PROVIDED PER REQUEST. PATIENT COMMENTED ABOUT PLAYING WITH ROCKS. WHEN ASKED WHERE HE IS, INITIALLY RESPONDED "[place]" BUT [place] AND STATED [place] HE WAS CORRECT ON THE MONTH AND YEAR WHEN ASKED BUT REPORTS HE FORGOT WHAT DAY IT IS WAS SINCE HE HAS BEEN ADMITTED. PATIENT PLEASANTLY CONVERSING WITH THIS RN, DISCUSSED HIS PLAN TO MAKE IT TO [facility]. REMAINS SITTING UP IN BED WHILE LOOKING AT HIS PHONE. DENIES NEEDS OR CONCERNS. CALL LIGHT IN REACH. BED EXIT ALARM REMAINS ON FOR SAFETY.
--- NOTE | 2024-01-25 03:12 | NUR ---
PATIENT BECAME DROWSY AND REPORTS HE WAS TIRED. ASSESSMENT COMPLETED EARLY PATIENT COULD STILL PARTICIPATE AND HAVE NON-INTERUPTED SLEEP. PATIENT REPOSITIONING IN BED INDEPENDENTLY. CALL LIGHT IN REACH. BED IN LOWEST POSITION AND EXIT ALARM ON FOR SAFETY.
--- NOTE | 2024-01-25 04:01 | NUR ---
PATIENT AWAKE AND SITTING UP IN BED WHILE CONVERSING WITH THIS RN. SPOKE MORE ABOUT [place], [place] AND HIS TRAVELS. PATIENT REQUESTED SNACK AND COFFEE. COFFEE AND PUDDING PROVIDED. NICOTENE LOZENGE GIVEN PER MARÍA.
--- NOTE | 2024-01-25 05:23 | NUR ---
DIRECTOR DIETETICS DEPARTMENT IN ROOM TO DRAW AM LABS. PATIENT RESTING WITH EYES CLOSED DURING DRAW. RESPIRATIONS EVEN AND UNLABORED EXCEPT A LIGHT SNORE. O2 SAT 99-100% RA. CALL LIGHT IN REACH, BED EXIT ALARM ON.
--- NOTE | 2024-01-25 05:29 | NUR ---
PATIENT SET OFF BED ALARM. REPORTS HE NEEDS TO PEE. ASSISTED WITH URINAL. PATIENT VOIDED 200ML CLEAR LIGHT YELLOW URINE. BED EXIT ALARM REMAINS ON. PATIENT NEEDS RE-ORIENTED TO TIME WHEN HE WAKES.
[2024-01-25 05:31] LABS: BASOPHILS 0.6 % (0-2); EOSINOPHILS 2.1 % (0-6); HEMATOCRIT 29.5 % (35.0-50.0); HEMOGLOBIN 10.2 g/dL (12.0-18.0); LYMPHOCYTES 18.2 % (24-44); MCH 31.5 (27-36); MCHC 34.5 g/dl (30-36); MCV 91.2 fl (81-99); NEUTROPHILS 63.1 % (39-80); PLATELET COUNT 114 K/uL (140-440); RBC 3.24 M/ul (4.3-5.7); RDW 15.5 (10.5-15.0)
[2024-01-25 05:46] LABS: ANION GAP 13.6 (7-21); BUN/CREATININE RATIO 8.95 (6.0-28.6); CALCIUM 8.3 mg/dL (8.5-10.1); CREATININE, SERUM 1.34 mg/dL (0.70-1.30); MAGNESIUM 2.1 mg/dL (1.8-2.4); PHOSPHORUS, INORGANIC 2.4 mg/dL (2.5-4.9); POTASSIUM 3.6 mmol/L (3.5-5.1)
--- NOTE | 2024-01-25 07:05 | NUR ---
Report received from [facility]. Patient resting in bed with eyes closed, even and unlabored respirations. NSR on monitor. No needs identified at this time, allowed to rest undisturbed. Will continue plan of care.
[2024-01-25] MEDS ORDERED: POTASSIUM PHOSPHATE 30 MMOL in DEXTROSE 5% 500 ML IV ONE (08:15)
--- NOTE | 2024-01-25 08:16 | NUR ---
Patient resting in bed with eyes clsoed, even and unlabored respirations. VSS, NSR on monitor. No needs identified at this time. Call light in reach, in view of nurses station, bed alarm on.
[2024-01-25] MEDS ORDERED: PANTOPRAZOLE SODIUM 40 MG TABEC PO SCH (09:00)
--- NOTE | 2024-01-25 09:30 | NUR ---
Scheduled medications administered and assessment complete. Patient 1PA to BR, bedbath with wipes complete, shampoo cap complete. Linens changed and room tidied, new gown. Patient A+O, denies pain or needs at this time. On RA, VSS, NSR on monitor. CIWA negative.
--- NOTE | 2024-01-25 09:31 | NUR ---
ASSISTED PT 1 PERSON TO WALK TO BATHROOM, INC OF URINE, + FLATUS, PT ALERT AND AGREEABLE TO BED BATH WHILE UP, LINENS CHANGED ON BED AND CHAIR READY FOR BREAKFAST. SHOWER CAP GIVEN AND PT ASSISTED IN CARES. PRIMARY RN IN ROOM FOR MEDS, PT APPEARED STRONGER THAN YESTERDAY WHEN TRSF IN ROOM AND AMBULATING.
--- NOTE | 2024-01-25 10:30 | NUR ---
Patient remains up in chair after breakfast, watching tv. On room air, VSS. Pt A+O, fresh coffee provided. No needs at this time. Call light in reach.
--- NOTE | 2024-01-25 10:30 | NUR ---
Pt up in chair at bedside. Laughs when he sees me. Asks if he was talking "crazy shit" last time I saw him. He denies needs. cont. to plan to dc the beginning of next week and travel by bus to [place], [place].
--- NOTE | 2024-01-25 11:10 | NUR ---
Float RN in room to assist patient to BR. Back to chair, watching tv at this time, states no needs. Call light in reach.
--- NOTE | 2024-01-25 12:30 | NUR ---
Patient sitting up to chair while eating lunch, listening to music. In good spirits, talkative with staff.
[2024-01-25] MEDS ORDERED: lisinopriL 20 MG TAB PO SCH (12:45)
--- NOTE | 2024-01-25 13:56 | NUR ---
Patient sitting up in chair listening to music. Fresh beverages provided. IVF infusing WNL. Patient states no needs at this time, call light in reach.
--- NOTE | 2024-01-25 14:25 | NUR ---
PT NOT AVAILABLE FOR VISIT. PROVIDED PRAYER.
[2024-01-25] MEDS ORDERED: AMLODIPINE BESYLATE 10 MG TAB PO SCH (15:09)
[2024-01-25 15:13] LABS: VITAMIN D,1,25-DIHYDROXY 97.2 pg/mL (19.9-79.3)
[2024-01-25] MEDS ORDERED: LABETALOL HCL 100 MG/20 ML MDV IV PRN (15:15)
[2024-01-25] MEDS ORDERED: LABETALOL HCL 20 MG/4 ML VIAL IV PRN (15:30)
--- NOTE | 2024-01-25 17:18 | NUR ---
PT IV IN LEFT AC REMOVED IT WAS LEAKING. US IV PLACED IN RIGHT FA. PT TOLERATED WELL. PT DENIES PAIN OR NEEDS. COREG GIVEN PER ORDER. PT DINNER AT BEDSIDE.
--- NOTE | 2024-01-25 18:00 | NUR ---
PT RESTING IN BED, CALL LIGHT WITHIN REACH, BEDRAILS UP FOR SAFETY. PT DENIES NEEDS AT THIS TIME.
--- NOTE | 2024-01-25 19:45 | NUR ---
HANDOFF REPORT FROM DAY SHIFT RECEIVED. PT LAYING AWAKE IN BED. NO NEEDS AT THIS TIME. CALL LIGHT WITHIN REACH.
--- NOTE | 2024-01-25 20:40 | NUR ---
PT ASSESSMENT COMPLETE. PT IS A/O, ANSWERS QUESTIONS AND FOLLOWS COMMANDS APPROPRIATELY. PT IV SITE ON RIGHT FOREARM IS WNL. IV SITE ON LEFT FOREARM NOTED TO BE LEAKING, AND TAKEN OUT. PT TOLERATED WELL, TIP INTACT. PT LUNGS ARE CLEAR AND REMAINS ON ROOM AIR. PT DENIES ANY PAIN AT THIS TIME. CIWA SCORE OF ZERO. PT HAS NO NEEDS AT THIS TIME. VITAL SIGNS STABLE. CALL LIGHT WITHIN REACH.
--- NOTE | 2024-01-25 21:30 | NUR ---
PT PROVIDED WITH SANDWICH BOX PER REQUEST. PT DENIES WANTING NICOTINE PATCH REMOVED. NO FURTHER NEEDS AT THIS TIME. CALL LIGHT WITHIN REACH.
--- NOTE | 2024-01-25 22:03 | NUR ---
PT UPDATED ON PLAN OF CARE. PT TO BE MOVED TO MED-SURG FLOOR ROOM 109.
--- NOTE | 2024-01-25 22:30 | NUR ---
pt TRANSFERED OVER FROM CCU. ASSESSMENT AND VITAL SIGNS DONE. pt SETTLED INTO RM. NO SIGNS OF CWAH AT THIS TIME. CALL LIGHT WITHIN REACH.
--- NOTE | 2024-01-25 22:38 | NUR ---
pt transferred to [facility] floor room 109. All pt belongings taken with pt.
[2024-01-26] VITALS (8 sets, daily range): BP systolic 121–177; BP diastolic 79–97
--- NOTE | 2024-01-26 01:07 | NUR ---
pt RESTING IN THE BED WITH EYES CLOSED. RR EVEN AND UNLABORED. CALL LIGHT WITHIN REACH.
--- NOTE | 2024-01-26 02:35 | NUR ---
pt RESTING IN THE BED. pt DENIES ANY NEEDS AT THIS TIME. CALL LIGHT WITHIN REACH.
--- NOTE | 2024-01-26 04:29 | NUR ---
pt RESTING IN THE BED WITH EYES CLOSED. RR EVEN AND UNLABORED. CALL LIGHT WITHIN REACH.
--- NOTE | 2024-01-26 05:17 | NUR ---
ETCHER PHOTOENGRAVING OBTAINED VITALS AND I&O. PT URINAL EMPTIED AND ETCHER PHOTOENGRAVING GAVE PT A SODA UPON REQUEST. PT STATES NO FURTHER NEEDS AT THIS TIME. CALL LIGHT WITHIN REACH.
[2024-01-26 05:39] LABS: ANION GAP 13.8 (7-21); BUN/CREATININE RATIO 8.59 (6.0-28.6); CALCIUM 8.7 mg/dL (8.5-10.1); CREATININE, SERUM 1.28 mg/dL (0.70-1.30); MAGNESIUM 1.7 mg/dL (1.8-2.4); PHOSPHORUS, INORGANIC 2.6 mg/dL (2.5-4.9); POTASSIUM 3.8 mmol/L (3.5-5.1)
--- NOTE | 2024-01-26 06:32 | NUR ---
pt RESTED THROUGH OUT THE NIGHT. CWAH NEGATIVE. pt ALERT AND ORIENTATED X4. NO OTHER CONCERNS AT THIS TIME.
--- NOTE | 2024-01-26 07:05 | NUR ---
REPORT RECEIVED FROM DYE WINCH OPERATOR FILI STAFFORD. PATIENT IS LYING IN BED WITH EYES CLOSED AND RESPIRATIONS ARE EVEN AND UNLABORED. CALL LIGHT AND PERSONAL BELONGINGS ARE WITHIN REACH.
--- NOTE | 2024-01-26 07:37 | NUR ---
UR CONCURRENT REVIEW: MCG-CONTINUES TO MEET INPT FOR DELIRIUM BASIC DMAP INPT 01/21/24 @ 1430 ORDER MATCHES REG NO AUTH REQUIRED PER MEDICAID GUIDELINES DISCHARGE WHEN STABLE 01/29/24
--- NOTE | 2024-01-26 08:02 | NUR ---
0800 AND 0900 MEDICATIONS ADMINISTERED PER THE EMAR. PATIENT IS SITTING UPRIGHT IN BED AND WAITING TO GET BREAKFAST. PATIENT GIVEN 2 SODAS PER PATIENT REQUEST. PATIENT STATED NO FURTHER NEEDS AT THIS TIME. CALL LIGHT AND PERSONAL BELONGINGS ARE WITHIN REACH.
--- NOTE | 2024-01-26 08:13 | NUR ---
PATIENT IN BED AT THIS TIME. WINDOW TINTER WENT TO ROUND ON PATIENT, WINDOW TINTER EMPTIED URINAL AND CHARTE VOIDINGS ON CHART IN ROOM. CALL LIGHT WITHIN REACH, NO FURTHER NEEDS AT THIS TIME.
[2024-01-26] MEDS ORDERED: SPIRONOLACTONE 25 MG TAB PO SCH (09:00)
[2024-01-26] MEDS ORDERED: PANTOPRAZOLE SODIUM 40 MG TABEC PO SCH (09:00)
[2024-01-26] MEDS ORDERED: MAGNESIUM SULFATE 2 GM/50 ML BAG IV ONE (09:00)
--- NOTE | 2024-01-26 09:39 | NUR ---
PATIENT IS SITTING ON THE EDGE OF BED AND PUTTING A NEW GOWN ON AFTER TAKING A SHOWER. PATIENT STATED NO FURTHER NEEDS AT THIS TIME. CALL LIGHT AND PERSONAL BELONGINGS ARE WITHIN REACH.
--- NOTE | 2024-01-26 10:01 | NUR ---
PATIENT STATES HE HAS SOMEONE BRINGING HIS BELONGINGS TO HOSPITAL. STATES IT IS A SMALL "CART." DIRECTOR OF USER EXPERIENCE NOTIFIED AND REQUEST SECURITY REVIEW CONTENTS TO ENSURE PATIENT SAFETY WHEN IT ARRIVES PRIOR TO TAKING IT TO PATIENT ROOM.
--- NOTE | 2024-01-26 10:06 | NUR ---
PATIENT IN BED AT THIS TIME. CASH TELLER CHARTED PATIENTS VITALS AND I&O'S. PATIENT REQUESTED TO SPEAK TO SIGNAL SUPERVISOR MARS. CALL LIGHT WITHIN REACH, NO FURTHER NEEDS AT THIS TIME.
--- NOTE | 2024-01-26 10:23 | NUR ---
VISITED DURING SPIRITUAL CARE ROUNDS. PT APPEARED TO BE SLEEPING. DID NOT DISTURB. PROVIDED PRAYER.
--- NOTE | 2024-01-26 10:50 | NUR ---
0900 MAGNESIUM SULFATE AND SPIRINOLACTONE ADMINISTERED PER THE EMAR. PATIENT IS SITTING UPRIGHT IN BED WITH A VISITOR SITTING ON THE COUCH. FULL ASSESSMENT COMPLETE AND DOCUMENTED IN THE CHART. PATIENT IS ALERT AND ORIENTED TIMES FOUR. PATIENT IS ON ROOM AIR AND LUNG SOUNDS ARE CLEAR BILATERALLY. PATIENT WITH NO COMPLAINTS OF SOB. CARDIAC WITH NORMAL S1 AND S2 ON AUSCULTATION. RADIAL AND PEDAL PULSES ARE STRONG BILATERALLY. CAPILLARY REFILL IN THE UPPER AND LOWER EXTREMITIES IS LESS THAN 3 SECONDS BILATERALLY. ABDOMEN IS DISTENDED BUT THE PATIENT STATES THIS IS NORMAL. BOWEL TONES ARE ACTIVE IN ALL FOUR QUADRANTS. PATIENT IS ON A REGULAR DIET WITH SOFT TEXTURE. PATIENT WITH NO COMPLAINTS OF PAIN. SENSATION INTACT WITH NO COMPLAINTS OF NUMBNESS AND TINGLING. SKIN INTACT. SKIN WITH DRY AND FLAKEY SKIN ON THE BILATERAL FEET. PATIENT WITH THE URINAL AT BEDSIDE. IV FLUSHED WITH 10 ML NORMAL SALINE. IV MAGNESIUM SULFATE IS INFUSING AT THIS TIME. PATIENT STATED NO FURTHER NEEDS, CALL LIGHT AND PERSONAL BELONGINGS ARE WITHIN REACH.
--- NOTE | 2024-01-26 11:39 | NUR ---
0900 MAGNESIUM SULFATE INFUSION COMPLETE. IV FLUSHED WITH 10 ML NORMAL SALINE AND IS NOW SALINE LOCKED. IV DRESSING IS CLEAN, DRY, AND INTACT. PATIENT STATED NO FURTHER NEEDS AT THIS TIME. CALL LIGHT AND PERSONAL BELONGINGS ARE WITHIN REACH.
--- NOTE | 2024-01-26 12:18 | NUR ---
PATIENT IS LYING IN BED WITH HOB ELEVATED. PATIENT WITH EYES OPEN AND RESPIRATIONS ARE EVEN AND UNLABORED. CALL LIGHT AND PERSONAL BELONGINGS ARE WITHIN REACH.
--- NOTE | 2024-01-26 12:24 | NUR ---
COLD PRESS OPERATOR SET PATIENT UP WITH SHOWER. PATIENT WAS ABLE TO INDEPENDENTLY SHOWER. CALL LIGHT WITHIN REACH, NO FURTHER NEEDS AT THIS TIME.
--- NOTE | 2024-01-26 12:36 | NUR ---
PRINCIPAL PROCESS ENGINEER SOLANGE HOURLY ROUNGINGS ON PATIENT, PATIENT ASKED FOR MORE SODA. CALL LIGHT WITHIN REACH, NO FURTHER NEEDS AT THIS TIME.
--- NOTE | 2024-01-26 13:55 | NUR ---
PT RESTING IN BED AT THIS TIME WITH EYES SHUT, DID NOT WAKEN UPON ENTERING ROOM. BREATHING UNLABORED. ALL PT CARE NEEDS MET, CALL LIGHT WITHIN REACH.
--- NOTE | 2024-01-26 15:24 | NUR ---
PATIENT IS LYING IN BED. PATIENT WITH NO COMPLAINTS OF PAIN AT THIS TIME. IV SITE IN THE RIGHT UPPER ARM FLUSHED WITH 10 ML NORMAL SALINE AND IS SALINE LOCKED. IV DRESSING IS CLEAN, DRY, AND INTACT. BOWEL TONES ARE ACTIVE IN ALL FOUR QUADRANTS. LAST BM WAS 01/25/24. PATIENT IS ON A REGULAR DIET. PATIENT GIVEN SUPPLIES FOR HIM TO SHAVE AND SHOWER LATER TONIGHT. PATIENT IS USING PERSONAL RAZOR TO SHAVE. PATIENT STATED NO FURTHER NEEDS AT THIS TIME. CALL LIGHT AND PERSONAL BELONGINGS ARE WITHIN REACH.
--- NOTE | 2024-01-26 15:34 | NUR ---
PATIENT IN BED AT THIS TIME. DISTRIBUTION FIELD ENGINEER DID HOURLY ROUNDS ON PATIENT. CALL LIGHT WITHIN REACH, NO FURTHER NEEDS AT THIS TIME.
--- NOTE | 2024-01-26 18:42 | NUR ---
PATIENT IS LYING IN BED WITH EYES CLOSED AND RESPIRATIONS ARE EVEN AND UNLABORED. CALL LIGHT AND PERSONAL BELONGINGS ARE WITHIN REACH.
--- NOTE | 2024-01-26 19:49 | NUR ---
PATIENT RESTING IN BED ANXIOUS ABOUT NICOTINE PATCH THAT CAME OFF DURING SHOWER. NICOTINE MARIE. ADMINISTERED AND ONE PATCH ORDERED TO REPLACE HE WANTS IT ON OVERNIGHT AND SAID, "IF I HAVE A NICOTINE ATTACK, IM THE SORT OF SUDHAKAR THAT WILL GRAB MY STUFF AND LEAVE." THIS RN TOLD PATIENT A NEW PATCH CAN BE ORDERED AND MARIE. ARE AVAILABLE.
[2024-01-26] MEDS ORDERED: NICOTINE 21 MG/24 HR 1 EA TDSY TD ONE (20:00)
--- NOTE | 2024-01-26 20:36 | NUR ---
BRAZER INDUCTION OBTAINED VITALS AND I&O. PT STATES NO FURTHE RNEEDS AT THIS TIME CALL LIGHT WITHIN REACH.
--- NOTE | 2024-01-26 22:00 | NUR ---
PATIENT RESTING QUIETLY IN BED EYES CLOSED RESP REGULAR AT 18/MIN. NO DISTRESS NOTED VISUALLY ON ROUNDING.
[2024-01-27] VITALS (12 sets, daily range): BP systolic 141–185; BP diastolic 82–104
--- NOTE | 2024-01-27 03:49 | NUR ---
PATIENT AWAKE, ALERT AND ORIENTED. HE SAID, "ITS A LONG TIME UNTIL BREAKFAST" LUNCH BOX PROVIDED. PATIENT STARTED TALKING ABOUT D/C PLAN FOR MONDAY, HE VERBALIZED HE IS READY SOON HE CAN GET THE BUS TICKET. HE SAID, "I FEEL REALLY GOOD, I AM EATING AND DRINKING, NO PAIN, NO NAUSEA." THIS RN SAID, "I WILL BE SURE TO PASS THAT ON TO DAYSHIFT AND CASE MANAGEMENT. HE SAID, "YES, PLEASE." PATIENT HAS NO OTHER NEEDS OR CONCERNS AT THIS TIME.
--- NOTE | 2024-01-27 05:20 | NUR ---
PAID SEARCH SPECIALIST OBTAINED VITALS NAD I&O. PT B/P IS 185/102. RN NOTIFED. PT STATES NO NEEDS AT THIS TIME. CALL LIGHT WITHIN REACH.
[2024-01-27 05:36] LABS: ANION GAP 14.8 (7-21); BUN/CREATININE RATIO 10.93 (6.0-28.6); CALCIUM 8.6 mg/dL (8.5-10.1); CREATININE, SERUM 1.28 mg/dL (0.70-1.30); MAGNESIUM 1.9 mg/dL (1.8-2.4); PHOSPHORUS, INORGANIC 2.6 mg/dL (2.5-4.9); POTASSIUM 3.8 mmol/L (3.5-5.1)
[2024-01-27] MEDS ORDERED: HYDROmorphone HCL 1 MG/ML SYR IV PRN (05:45)
--- NOTE | 2024-01-27 05:45 | NUR ---
CALLED TO NOTIFY OF PATIENT REPORT OF ABD PAIN SEVERE 11/17, PATIENT SAID, "IT IS LIKE THE PAIN I HAD WHEN I CAME IN BUT NOT BAD." NEW ORDER FOR PAIN MANAGEMENT.
--- NOTE | 2024-01-27 07:05 | NUR ---
REPORT RECEIVED FROM MANDREL CLEANER RN HOLLAND. PATIENT IS LYING IN BED WITH EYES CLOSED AND RESPIRATIONS ARE EVEN AND UNLABORED. CALL LIGHT AND PERSONAL BELONGINGS ARE WITHIN REACH.
--- NOTE | 2024-01-27 08:27 | NUR ---
PATIENT IN BED AT THIS TIME. WIPER BLENDER WENT INTO PATIENTS ROOM FOR HOURLY ROUNDINGS. CALL LIGHT WITHIN REACH, NO FURTHER NEEDS AT THIS TIME.
--- NOTE | 2024-01-27 09:35 | NUR ---
FULL ASSESSMENT COMPLETE AND DOCUMENTED IN THE CHART. PATIENT IS LYING IN BED AND VERY TIRED. PATIENT STATED "I THINK IT IS FROM THE PAIN MEDICATION". PATIENT RECEIVED IV DILUADID EARLIER THIS MORNING THAT MARKETING REPORTING ANALYST ADMINISTERED. PATIENT IS ALERT AND ORIENTED TIMES FOUR. PATIENT IS INDEPENDENT IN THE ROOM WITH THE URINAL AT THE BEDSIDE. PATIENT IS ON ROOM AIR AND LUNG SOUNDS ARE CLEAR BILATERALLY. CARDIAC WITH NORMAL S1 AND S2 ON AUSCULTATION. RADIAL AND PEDAL PULSES ARE STRONG BILATERALLY. SENSATION INTACT WITH NO COMPLAINTS OF NUMBNESS AND TINGLING. PATIENT WITH NO COMPLAINTS OF PAIN AT THIS TIME. SKIN INTACT. DRY AND FLAKEY SKIN NOTED ON THE BILATERAL FEET. BOWEL TONES ARE ACTIVE IN ALL FOUR QUADRANTS. ABDOMEN IS DISTENDED BUT PATIENT STATES THIS IS NORMAL. PATIENT IS ON A REGULAR SOFT DIET AND LOW FAT. IV SITE IN THE RAC FLUSHED WITH 10 ML NORMAL SALINE AND IS SALINE LOCKED. IV DRESSING IS CLEAN AND DRY. IV SITE WRAPPED WITH GAUZE DUE TO THE WINDOW DRESSING COMING UP. PATIENT STATED NO FURTHER NEEDS AT THIS TIME. CALL LIGHT AND PERSONAL BELONGINGS ARE WITHIN REACH.
--- NOTE | 2024-01-27 10:12 | NUR ---
PATIENT IS LYING IN BED WITH EYES CLOSED AND RESPIRATIONS ARE EVEN AND UNLABORED. CALL LIGHT AND PERSONAL BELONGINGS ARE WITHIN REACH.
--- NOTE | 2024-01-27 11:09 | NUR ---
PATIENT IS LYING IN BED ON THEIR LEFT SIDE WITH EYES CLOSED AND RESPIRATIONS ARE EVEN AND UNLABORED. CALL LIGHT AND PERSONAL BELONGINGS ARE WITHIN REACH.
--- NOTE | 2024-01-27 12:14 | NUR ---
PATIENT IN BED AT THIS TIME. CALL LIGHT WITHIN REACH, NO FURTHER NEEDS AT THIS TIME.
--- NOTE | 2024-01-27 12:19 | NUR ---
PATIENT IS SITTING ON THE EDGE OF BED. PATIENT IS INDEPENDENT IN THE ROOM. PATIENT GIVEN 2 SODAS AT THIS TIME. PATIENT STATED NO FURTHER NEEDS, CALL LIGHT AND PERSONAL BELONGINGS ARE WITHIN REACH.
--- NOTE | 2024-01-27 13:26 | NUR ---
PATIENT IS LYING IN BED AND LOOKING ON THEIR PHONE. TV IS ON IN THE ROOM. CALL LIGHT AND PERSONAL BELONGINGS ARE WITHIN REACH.
--- NOTE | 2024-01-27 14:25 | NUR ---
PATIENT IS SITTING UPRIGHT IN BED AND WATCHING TV. PATIENT WITH NO COMPLAINTS OF PAIN WHEN ASKED BY RN. ABDOMEN IS DISTENDED BUT PATIENT STATES THAT IS NORMAL FOR HIM. BOWEL TONES ARE ACTIVE IN ALL FOUR QUADRANTS. PATIENT IS ON A REGULAR AND SOFT DIET. LAST BM WAS 01/25/24. PATIENT STATED NO FURTHER NEEDS AT THIS TIME. CALL LIGHT AND PERSONAL BELONGINGS ARE WITHIN REACH.
--- NOTE | 2024-01-27 16:29 | NUR ---
PATIENT IS LYING IN BED WITH HOB ELEVATED AND WATCHING TV. PATIENT WITH NO COMPLAINTS OF PAIN WHEN ASKED BY RN. PATIENT STATED NO FURTHER NEEDS AT THIS TIME. CALL LIGHT AND PERSONAL BELONGINGS ARE WITHIN REACH.
--- NOTE | 2024-01-27 18:22 | NUR ---
PATIENT IS LYING IN BED AND WATCHING TV. PATIENT GIVEN TWO JOHN ALES PER PATIENT REQUEST. PATIENT STATED NO FURTHER NEEDS AT THIS TIME. CALL LIGHT AND PERSONAL BELONGINGS ARE WITHIN REACH.
--- NOTE | 2024-01-27 19:24 | NUR ---
REPORT RECEIVED FROM DAY SHIFT RN. PT LYING IN BED ALERT AND ORIENTED. PUDDING PROVIDED PER REQUEST. NO FURTHER NEEDS. WHITE BOARD UPDATED. CALL LIGHT IN REACH.
--- NOTE | 2024-01-27 20:55 | NUR ---
EVENING ASSESSMENT COMPLETE. PT DENIES PAIN OR NAUSEA. BOWEL TONES ACTIVE. ABD DISTENDED, PT STATES NORMAL. NO S/SX OF ETOH WITHDRAWAL NOTED. PT DENIES HEADACHE, TREMORS, OR VISUAL DISTURBANCES. PT LEFT SITTING ON SIDE OF BED WITH COFFEE. DENIES QUESTIONS OR CONCERNS. CALL LIGHT IN REACH.
--- NOTE | 2024-01-27 21:05 | NUR ---
Patient was still awake and requested coffee to drink. After that was given, no other cares were asked for.
--- NOTE | 2024-01-27 23:13 | NUR ---
PT RESTING IN BED WITH EYES CLOSED. RESPIRATIONS EVEN. CALL LIGHT IN REACH.
[2024-01-28] VITALS (11 sets, daily range): BP systolic 126–155; BP diastolic 62–98
--- NOTE | 2024-01-28 03:15 | NUR ---
PT IN BED RESTING WITH EYES CLOSED. RESPIRATIONS EVEN. CALL LIGHT IN REACH.
--- NOTE | 2024-01-28 05:34 | NUR ---
PT AWAKE IN BED. VS AND I&O OBTAINED. PT DENIES PAIN OR NAUSEA. NO S/SX ETOH WITHDRAWAL NOTED. ASSISTED TO ORDER BREAKFAST. SODA PROVIDED. NO FURTHER NEEDS.
--- NOTE | 2024-01-28 06:21 | NUR ---
Patient was alert, awake, and listening to music. No cares were requested.
--- NOTE | 2024-01-28 07:02 | NUR ---
REPORT RECEIVED FROM GUEST RELATIONS EXECUTIVE FILI MORROW. PATIENT IS SITTING UPRIGHT IN BED. PATIENT STATED NO NEEDS AT THIS TIME. CALL LIGHT AND PERSONAL BELONGINGS ARE WITHIN REACH.
[2024-01-28] MEDS ORDERED: FAMOTIDINE 20 MG TAB PO SCH (09:00)
--- NOTE | 2024-01-28 09:39 | NUR ---
FULL ASSESSMENT COMPLETE AND DOCUMENTED IN THE CHART. PATIENT IS SITTING UPRIGHT IN THE BED AND WATCHING TV. PATIENT IS ALERT AND ORIENTED TIMES FOUR. PATIENT IS INDEPENDENT IN THE ROOM WITH THE URINAL AT THE BEDSIDE. PATIENT IS ON ROOM AIR. LUNG SOUNDS ARE CLEAR IN THE UPPER LOBES BILATERALLY AND DIMINISHED IN THE BASES BILATERALLY. CARDIAC WITH NORMAL S1 AND S2 ON AUSCULTATION. RADIAL PULSES ARE STRONG BILATERALLY. BOWEL TONES ARE ACTIVE IN ALL FOUR QUADRANTS. PATIENT IS ON A REGULAR DIET AND LOW FAT WITH SOFT TEXTURE. ABDOMEN DISTENDED BUT PATIENT STATES THIS IS NORMAL. PATIENT WITH NO COMPLAINTS OF PAIN OR NUMBNESS AND TINGLING. SKIN AND SENSATION INTACT. DRY AND FLAKEY SKIN NOTED OF BILATERAL FEET. IV IN THE LEFT FOREARM FLUSHED WITH 10 ML NORMAL SALINE AND IS SALINE LOCKED. PATIENT IS REQUESTING A NICOTINE LOZENGE AT THIS TIME. CALL LIGHT AND PERSONAL BELONGINGS ARE WITHIN REACH.
--- NOTE | 2024-01-28 10:28 | NUR ---
PATIENT IS SITTING UPRIGHT IN BED AND WATCHING TV WITH THE HOB ELEVATED. RESPIRATIONS ARE EVEN AND UNLABORED. CALL LIGHT AND PERSONAL BELONGINGS ARE WITHIN REACH.
--- NOTE | 2024-01-28 11:10 | NUR ---
PATIENT IS LYING IN BED WITH EYES CLOSED AND RESPIRATIONS ARE EVEN AND UNLABORED. CALL LIGHT AND PERSONAL BELONGINGS ARE WITHIN REACH.
--- NOTE | 2024-01-28 12:41 | NUR ---
PATIENT IS LYING IN BED WITH HOB ELEVATED AND WATCHING TV. PATIENT LUNCH TRAY REMOVED AT THIS TIME. PATIENT GIVEN A PEPSI PER PATIENT REQUEST THAT WAS IN THE PATIENT FRIDGE. PATIENT STATED NO FURTHER NEEDS AT THIS TIME, CALL LIGHT AND PERSONAL BELONGINGS ARE WITHIN REACH.
--- NOTE | 2024-01-28 13:12 | NUR ---
PATIENT IS AMBULATING IN THE ROOM INDEPENDENTLY AND ORGANIZING PERSONAL BELONGINGS. VITAL SIGNS AND INTAKE AND OUTPUT VALUES TAKEN AND DOCUMENTED IN THE CHART. PATIENT STATED NO FURTHER NEEDS AT THIS TIME. CALL LIGHT AND PERSONAL BELONGINGS ARE WITHIN REACH.
--- NOTE | 2024-01-28 14:47 | NUR ---
PATIENT IS SITTING UPRIGHT IN BED AND LOOKING ON THEIR PHONE. PATIENT WITH NO COMPLAINTS OF PAIN WHEN ASKED BY RN. PATIENT BOWEL TONES ARE ACTIVE IN ALL FOUR QUADRANTS. ABDOMEN DISTENDED BUT THE PATIENT STATES THAT IS NORMAL FOR HIM. PATIENT STATED NO FURTHER NEEDS AT THIS TIME. CALL LIGHT AND PERSONAL BELONGINGS ARE WITHIN REACH.
[2024-01-28 14:49] LABS: ANION GAP 15.7 (7-21); BUN/CREATININE RATIO 11.11 (6.0-28.6); CALCIUM 9.3 mg/dL (8.5-10.1); CREATININE, SERUM 1.35 mg/dL (0.70-1.30); MAGNESIUM 1.8 mg/dL (1.8-2.4); PHOSPHORUS, INORGANIC 3.4 mg/dL (2.5-4.9); POTASSIUM 4.7 mmol/L (3.5-5.1)
--- NOTE | 2024-01-28 14:54 | NUR ---
PATIENT IS LYING IN BED WITH EYES CLOSED AND RESPIRATIONS ARE EVEN AND UNLABORED. HOB ELEVATED. CALL LIGHT AND PERSONAL BELONGINGS ARE WITHIN REACH.
--- NOTE | 2024-01-28 15:24 | NUR ---
PATIENT IS SITTING UPRIGHT IN THE CHAIR AND LOOKING ON THEIR PHONE. PATIENT IS INDEPENDENT IN THE ROOM. RESPIRATIONS ARE EVEN AND UNLABORED. CALL LIGHT AND PERSONAL BELONGINGS ARE WITHIN REACH.
--- NOTE | 2024-01-28 16:33 | NUR ---
PATIENT IS SITTING UPRIGHT IN BED AND WATCHING TV. PATIENT STATED NO FURTHER NEEDS AT THIS TIME. CALL LIGHT AND PERSONAL BELONGINGS ARE WITHIN REACH.
[2024-01-28] MEDS ORDERED: SODIUM CHLORIDE 0.9% 1,000 ML IV SCH (17:45)
--- NOTE | 2024-01-28 18:00 | NUR ---
PATIENT IS SITTING UPRIGHT IN BED AND WATCHING TV. NS BOLUS STARTED AT 200 ML/HR PER MD ORDER. IV FLUSHED WITH 10 ML NORMAL SALINE. PATIENT STATED NO FURTHER NEEDS AT THIS TIME. CALL LIGHT AND PERSONAL BELONGINGS ARE WITHIN REACH.
--- NOTE | 2024-01-28 19:41 | NUR ---
REPORT RECEIVED FROM DAY SHIFT RN. PT LYING IN BED ALERT AND ORIENTED. COFFEE PROVIDED. NO FURTHER NEEDS. WHITE BOARD UPDATED. CALL LIGHT IN REACH.
--- NOTE | 2024-01-28 21:48 | NUR ---
EVENING ASSESSMENT COMPLETE. VS AND I&O OBTAINED. PT DENIES PAIN OR NAUSEA. BOWEL TONES ACTIVE. ABD DISTENDED WHICH IS NORMAL PER PT. IVF INFUSING PER ORDER. CHICKEN BROTH PROVIDED. PT DENIES QUESITONS OR CONCERNS. CALL LIGHT IN REACH.
--- NOTE | 2024-01-28 22:42 | NUR ---
IV FLUIDS COMPLETE. IV SL AT THIS. PT DENIES NEEDS. CALL LIGHT IN REACH.
--- NOTE | 2024-01-29 00:22 | NUR ---
PT IN BED AWAKE. CHICKEN BROTH PROVIDED PER REQUEST. NO FURTHER NEEDS.
--- NOTE | 2024-01-29 03:34 | NUR ---
PT LYING ON LEFT SIDE IN BED. EYES CLOSED. RESPIRATIONS EVEN. CALL LIGHT IN REACH.
--- NOTE | 2024-01-29 04:53 | NUR ---
PT RESTING IN BED WITH EYES CLOSED. RESPIRATIONS EVEN. CALL LIGHT IN REACH.
[2024-01-29 05:45] VITALS: BP 130/72
[2024-01-29 05:46] VITALS: BP 130/72
--- NOTE | 2024-01-29 05:47 | NUR ---
PT RESTING WITH EYES CLOSED. AWAKENS EASILY. VS AND I&O OBTAINED. NO C/O PAIN OR NAUSEA. NO NEEDS AT THIS TIME. CALL LIGHT IN REACH.
--- NOTE | 2024-01-29 07:24 | NUR ---
PT ALERT AND INTERACTIVE AT TIME OF SHIFT REPORT. SITTING UP IN BED COFFEE PROVIDED PER REQUEST. PT DENIES PAIN OR DISCOMFORTS. DR RAYOUNG IN TO SEE HIM DC AND MEDICATIONS DISCUSSED ALL QUESTIONS ANSWERED
[2024-01-29 07:49] VITALS: BP 162/103
--- NOTE | 2024-01-29 07:56 | NUR ---
dr osborn notified of elevated bp then bp meds administered as ordered
[2024-01-29 08:03] VITALS: BP 162/103
[2024-01-29 09:18] VITALS: BP 129/80
--- NOTE | 2024-01-29 09:18 | NUR ---
RECHECKED BP HAS REDUCED TO 129/80 AT THIS TIME
[2024-01-29 09:25] VITALS: BP 127/83
== END 2024-01-29 10:10 | disposition home or self-care (01) | DRG 304 ==
LOC: ED 09:50 → MS 14:30 → CCU 14:30 → MS 01-25 22:26
PROVIDERS: Emergency Medicine; Student in an Organized Health Care Education/Training Program; ADMIT Family Medicine; ATTEND Family Medicine
DX: I16.1 Hypertensive emergency (principal); K85.90 Acute pancreatitis without necrosis or infection, unspecified; E87.20 Acidosis, unspecified; N17.9 Acute kidney failure, unspecified; Z59.00 Homelessness unspecified; K86.1 Other chronic pancreatitis; R65.10 Systemic inflammatory response syndrome (SIRS) of non-infectious origin without acute organ dysfunction; I13.0 Hypertensive heart and chronic kidney disease with heart failure and stage 1 through stage 4 chronic kidney disease, or unspecified chronic kidney disease; I16.0 Hypertensive urgency; F10.10 Alcohol abuse, uncomplicated; E87.6 Hypokalemia; E88.09 Other disorders of plasma-protein metabolism, not elsewhere classified; J44.9 Chronic obstructive pulmonary disease, unspecified; I50.9 Heart failure, unspecified; Y90.0 Blood alcohol level of less than 20 mg/100 ml; K80.20 Calculus of gallbladder without cholecystitis without obstruction; E83.39 Other disorders of phosphorus metabolism; N18.9 Chronic kidney disease, unspecified; F17.210 Nicotine dependence, cigarettes, uncomplicated; Z88.0 Allergy status to penicillin; Z91.148 Patient's other noncompliance with medication regimen for other reason; Z79.811 Long term (current) use of aromatase inhibitors; Z79.899 Other long term (current) drug therapy
CPT/HCPCS: 36415; 51798; 71045; 71260; 74176; 80048; 80053; 80061; 80307; 81001; 82140; 82533; 82652; 83605; 83690; 83735; 83880; 84100; 84443; 84484; 85025; 85610; 85730; 87040; 87502; 93005; 93010; 96367; 99285-25; A9270; G0480; J0360; J0696; J2060; J2405; J2470; J2560; J3475; J3480; J3490; J7030; J7060; J7121; Q9967; U0002